=== PATIENT | male | born 1970 | race Caucasian/White ===

== ENCOUNTER 2017-02-20 09:07 | Emergency (ER) | payer OTHER ==
--- NOTE | 2017-02-20 09:18 | CPEKG ---
Heart Rate: 75 RR Interval: 800 P-R Interval: 164 QRSD Interval: 94 QT Interval: 380 QTC Interval: 425 P [place]: 19 QRS [place]: -12 T Wave [place]: 23 EKG Severity - NORMAL ECG - EKG Impression: SINUS RHYTHM Electronically Signed By: Kelly Cabrera 20-Feb-2017 15:13:38
[2017-02-20] MEDS ORDERED: ASPIRIN 81 MG CHEWABLE TAB PO ONE (09:31)
[2017-02-20] MEDS ORDERED: ONDANSETRON 4 MG/2 ML VIAL IVP ONE (09:31)
[2017-02-20 09:36] LABS: % IMMATURE GRANULYOCYTES 0.2 % (0.0-1.1); ABSOLUTE IMMATURE GRANULOCYTES 0.01 10^3/uL (0.00-0.10); ADD DIFF? NO; ADD MORPH? NO; ADD SCAN? NO; ATYPICAL LYMPHOCYTE FLAG 10 (0-99); FRAGMENT RBC FLAG 0 (0-99); HEMATOCRIT 45.8 % (40.0-51.0); LEFT SHIFT FLG 0 (0-99); LIPEMIA HEMOLYSIS FLAG 90 (0-99); MEAN CELL HEMOGLOBIN 31.1 pg (27.9-34.1); MEAN CELL HEMOGLOBIN CONCENTR. 34.9 g/dL (32.4-36.7); MEAN CELL VOLUME 89.1 fL (81.5-99.8); MEAN PLATELET VOLUME 10.4 fL (8.7-11.7); PLATELET CLUMPS FLAG 10 (0-99); PLATELET COUNT 266 10^3/uL (150-400); RED BLOOD CELL COUNT 5.14 10^6/uL (4.40-6.38); RED CELL DISTRIBUTION WIDTH 12.8 % (11.5-15.2)
[2017-02-20] MEDS: NITROGLYCERIN 0.4 MG BTL SL PRN ×3 (09:37→09:58)
[2017-02-20 09:43] LABS: ANION GAP 13 mEq/L (8-16); CALCIUM 9.6 mg/dL (8.5-10.4); CARBON DIOXIDE 25 mEq/l (22-31); CHLORIDE 104 mEq/L (97-110); GLOMERULAR FILTRATION RATE > 60; GLUCOSE 123 mg/dL (70-100); SODIUM 142 mEq/L (134-144)
--- NOTE | 2017-02-20 09:49 | EDPHY ---
H & P Stated Complaint: chest pain x 1 hour Source: Patient, Family Exam Limitations: No limitations - Personal History Current Tetanus Diphtheria and Acellular Pertussis (TDAP): Yes - Medical/Surgical History Hx Asthma: No Hx Chronic Respiratory Disease: No Hx Diabetes: No Hx Cardiac Disease: No Hx Renal Disease: No Hx Cirrhosis: No Hx Alcoholism: No Hx HIV/AIDS: No Hx Splenectomy or Spleen Trauma: No Other PMH: kelvin, kidney stones, htn - Social History Smoking Status: Never smoked Time Seen by Provider: 02/20/17 09:14 HPI/ROS: CHIEF COMPLAINT: chest pain HISTORY OF PRESENT ILLNESS: 47-year-old male presents emergency department with his complaining of chest pain that started 1 hour prior to arrival while driving to work. Pain is moderate in nature, aching, 6/10. No alleviating or aggravating factors. Associated with nausea. Pain is left side of chest and behind right shoulder. Patient states he took 400 mg of ibuprofen after his pain started and then developed nausea. Pt reports a 4 day history of sneezing, headaches, chills, body aches and fatigue. No coughing, no sore throat. No abdominal pain, vomiting or diarrhea. Patient with a history of untreated hypertension. No history of blood clots, does not smoke cigarettes, father had an [place] in his 60s, no other known family history of heart disease. Patient flew home from [place] 1 week ago, no calf pain, no shortness of breath. REVIEW OF SYSTEMS: A comprehensive 10 point review of systems is otherwise negative aside from elements mentioned in the history of present illness. (Anita Salas) - Physical Exam Exam: Physical Exam Gen: Alert and Oriented, tearful HEENT: PERRL, moist mucous membranes NECK: no meningismus CV: regular rate and regular rhythm, no chest wall tenderness to palpation PULM: CTAB, no wheezes ABDOMEN: Obese, soft, non tender to palpation, BS present BACK: No CVA tenderness NEURO: Neurologically grossly intact EXTREMITIES: normal appearing SKIN: no rash or break in skin on exposed skin PSYCH: answers questions appropriately, tearful, anxious. (Anita Salas) Constitutional: Initial Vital Signs Temperature (C) 36.6 C 02/20/17 09:09 Heart Rate 79 02/20/17 09:09 Respiratory Rate 18 02/20/17 09:09 Blood Pressure 176/100 H 02/20/17 09:09 O2 Sat (%) 96 02/20/17 09:09 O2 Delivery Mode Room Air Allergies/Adverse Reactions: No Known Allergies Allergy (Verified 02/20/17 09:12) Home Medications: Medication Instructions Recorded LORazepam [Ativan] 1 mg PO TID PRN #10 tab 10/10/11 Methocarbamol [Robaxin 500 mg (RX)] 1,000 mg PO QID 10/10/11 methylPREDNISolone [Medrol Dose 4 mg PO AD 6 Days tab.ds.pk 10/10/11 Pack (RX)] oxyCODONE/APAP 5/325 [Percocet 1 - 2 tab PO Q6PRN PRN #20 tab 10/10/11 5/325] Medical Decision Making - Diagnostics Imaging: I viewed and interpreted images myself - Diagnostics EKG Interpretation: EKG shows normal sinus rhythm, rate 75, left axis deviation, good R-wave progression, no ST or T-wave abnormalities. (Anita Salas) Imaging Results: Imaging Impressions Chest X-Ray 02/20/17 09:30 Impression: Normal except for minimal airways disease. ED Course/Re-evaluation: This patient was seen and examined by me. He is a 47-year-old male with borderline hypertension who presents with left-sided chest pain and URI symptoms. Onset of pain while driving. The pain is localized to the left chest and is moderate. The pain increases with deep inspiration. No change with exertion. Treadmill test 2 years ago reportedly normal. Chest is clear to auscultation, heart regular rate. EKG and chest x-ray are unremarkable. Likely musculoskeletal etiology of pain. Initial troponin is normal. We will recheck a 2nd troponin in 4 hours. If 2nd troponin is normal and ddimer is normal, will plan to discharge home. (Kelly Cabrera) IV established, EKG obtained, lab work ordered including troponin and D-dimer. Chest x-ray ordered. Patient is given aspirin and nitroglycerin for 6/10 chest pain. No change in chest pain after nitroglycerin. Chest xray and ekg normal. Ddimer and troponin negative. Pt is given 15mg of IV toradol which brought his CP from a 6/10 to a 2/10. Pain is likely musculoskeletal in nature. Plan is for 2nd troponin 6 hours after onset of chest pain and if negative plan for discharge home with follow up with pcp. I had a long discussion with the patient about his chronic hypertension, his obesity and the importance of getting these under control. He and his agree and will follow up with Dr. Mcgowan. 1400- Second troponin is negative. Pt reports his pain is much improved. No localized pain. Pt comfortable being discharged home. He is given return precautions and agrees to follow up with Dr. Mcgowan. (Anita Salas) Differential Diagnosis: The differential diagnosis for the patient's chest pain included but was not limited to myocardial ischemia, pulmonary embolus, chest wall pain, pleural inflammation, and pulmonary infectious causes. (Anita Salas) - Data Points Laboratory Results: Laboratory Results 02/20/17 09:20 02/20/17 09:20 02/20/17 02/20/17 02/20/17 13:25 10:30 09:20 WBC RBC Hgb Hct MCV MCH MCHC RDW Plt Count MPV Neut % (Auto) Lymph % (Auto) [place] % (Auto) Eos % (Auto) Baso % (Auto) Nucleat RBC Rel Count Absolute Neuts (auto) Absolute Lymphs (auto) Absolute Monos (auto) Absolute Eos (auto) Absolute Basos (auto) Absolute Nucleated RBC Immature Gran % Immature Gran # D-Dimer < 0.27 ug/mLFEU ug/mLFEU (0.00-0.50) Sodium Potassium Chloride Carbon Dioxide Anion Gap BUN Creatinine Estimated GFR Glucose Calcium Troponin I < 0.012 ng/mL ng/mL (0.000-0.034) Lipase Influenza A & B (PCR) NEGATIVE FOR FLU (NEGATIVE) 02/20/17 02/20/17 09:20 09:20 WBC 5.81 10^3/uL 10^3/uL (3.80-9.50) RBC 5.14 10^6/uL 10^6/uL (4.40-6.38) Hgb 16.0 g/dL g/dL (13.7-17.5) Hct 45.8 % % (40.0-51.0) MCV 89.1 fL fL (81.5-99.8) MCH 31.1 pg pg (27.9-34.1) MCHC 34.9 g/dL g/dL (32.4-36.7) RDW 12.8 % % (11.5-15.2) Plt Count 266 10^3/uL 10^3/uL (150-400) MPV 10.4 fL fL (8.7-11.7) Neut % (Auto) 50.3 % % (39.3-74.2) Lymph % (Auto) 36.1 % % (15.0-45.0) [place] % (Auto) 9.6 % % (4.5-13.0) Eos % (Auto) 3.1 % % (0.6-7.6) Baso % (Auto) 0.7 % % (0.3-1.7) Nucleat RBC Rel Count 0.0 % % (0.0-0.2) Absolute Neuts (auto) 2.92 10^3/uL 10^3/uL (1.70-6.50) Absolute Lymphs (auto) 2.10 10^3/uL 10^3/uL (1.00-3.00) Absolute Monos (auto) 0.56 10^3/uL 10^3/uL (0.30-0.80) Absolute Eos (auto) 0.18 10^3/uL 10^3/uL (0.03-0.40) Absolute Basos (auto) 0.04 10^3/uL 10^3/uL (0.02-0.10) Absolute Nucleated RBC 0.00 10^3/uL 10^3/uL (0-0.01) Immature Gran % 0.2 % % (0.0-1.1) Immature Gran # 0.01 10^3/uL 10^3/uL (0.00-0.10) D-Dimer Sodium 142 mEq/L mEq/L (134-144) Potassium 4.0 mEq/L mEq/L (3.5-5.2) Chloride 104 mEq/L mEq/L (97-110) Carbon Dioxide 25 mEq/l mEq/l (22-31) Anion Gap 13 mEq/L mEq/L (8-16) BUN 14 mg/dL mg/dL (7-23) Creatinine 1.0 mg/dL mg/dL (0.7-1.3) Estimated GFR > 60 Glucose 123 mg/dL H mg/dL (70-100) Calcium 9.6 mg/dL mg/dL (8.5-10.4) Troponin I < 0.012 ng/mL ng/mL (0.000-0.034) Lipase 166 IU/L IU/L (23-300) Influenza A & B (PCR) Medications Given: Nitroglycerin (Nitrostat) 0.4 mg SL Q5M PRN PRN Reason: Chest Pain Last Admin: 02/20/17 09:50 Dose: 1 tab Discontinued Medications Aspirin (Aspirin) 324 mg PO EDNOW ONE Stop: 02/20/17 09:32 Last Admin: 02/20/17 09:37 Dose: 324 mg Ketorolac Tromethamine (Toradol) 15 mg IVP EDNOW ONE Stop: 02/20/17 10:11 Last Admin: 02/20/17 10:17 Dose: 15 mg Ondansetron HCl (Zofran) 4 mg IVP EDNOW ONE Stop: 02/20/17 09:32 Last Admin: 02/20/17 09:37 Dose: 4 mg Departure - Departure Disposition: Home, Routine, Self-Care Clinical Impression: Chest pain Qualifiers: Chest pain type: unspecified Qualified Code(s): R07.9 - Chest pain, unspecified Condition: Good Instructions: Chest Pain (ED), Noncardiac Chest Pain (ED) Additional Instructions: Rest, drink plenty of fluids. Take 600mg of ibuprofen every 8 hours with food as needed for your pain. Return to the ED for worsening symptoms, new symptoms or concerns. Follow up with Dr. Mcgowan at first available appointment. Call today to schedule this. Referrals: Janelle Mcgowan MD [Primary Care Provider] - As per Instructions
[2017-02-20 09:54] LABS: TROPONIN I < 0.012 ng/mL (0.000-0.034)
[2017-02-20] MEDS ORDERED: KETOROLAC 15 MG/1 ML SDV IVP ONE (10:10)
[2017-02-20 14:14] VITALS: BP 102/76; PULSE 72; RESP 18; TEMP 99; O2SAT 97
== END 2017-02-20 14:13 | disposition home or self-care (01) ==
DX: R07.9 Chest pain, unspecified (principal); I10 Essential (primary) hypertension
CPT/HCPCS: 96374; J1885; J2405

== ENCOUNTER → 2017-05-31 | Outpatient (CLI) | payer OTHER | LOC: FCPNEURO 21:00 | PROVIDERS: ATTEND Psychiatry & Neurology Sleep Medicine | DX: G47.33 Obstructive sleep apnea (adult) (pediatric) (principal); G47.31 Primary central sleep apnea ==